=== PATIENT | female | born 1985 | race African-American/Black ===

== ENCOUNTER 2017-02-01 00:50 | Emergency (ER) | payer MEDICAID, OTHER ==
[~2017-02-01] VITALS: Ht 167.6 cm; Wt 109.0 kg
[~2017-02-01 00:50] MED LIST: ALBUTEROL; PHENOBARBITAL
[2017-02-01 03:44] LABS: CLARITY URINE CLEAR (CLEAR); COLOR URINE YELLOW (YELLOW); GLUCOSE URINE NEGATIVE (NEGATIVE); KETONES URINE NEGATIVE (NEGATIVE); LEUKOCYTE ESTERASE URINE 2+ (NEGATIVE); NITRITE URINE NEGATIVE (NEGATIVE); OCCULT BLOOD URINE TRACE (NEGATIVE); PROTEIN URINE NEGATIVE (NEGATIVE); SPECIFIC GRAVITY URINE 1.015 (1.005-1.030); UROBILINOGEN URINE 0.2 E.U./dL (0.2-1.0)
[2017-02-01] MEDS ORDERED: IBUPROFEN 800MG TABLET PO ONE (05:30)
[2017-02-01 05:40] VITALS: BP 126/80
== END 2017-02-01 05:42 | disposition home or self-care (01) ==
LOC: ER 00:50
DX: N39.0 Urinary tract infection, site not specified (principal); G40.909 Epilepsy, unspecified, not intractable, without status epilepticus
CPT/HCPCS: 81001; 81025; 99283

== ENCOUNTER 2021-04-20 15:10 | Emergency (ER) | payer OTHER ==
[~2021-04-20] VITALS: Ht 165.1 cm; Wt 100.0 kg
[2021-04-20] MEDS ORDERED: LORAZEPAM 0.5MG TABLET PO ONE (16:00)
[2021-04-20 16:13] LABS: BASOPHILS % 0.6 % (0.0-2.0); EOSINOPHILS % 0.7 % (0.0-5.0); HEMATOCRIT. 38.8 % (36.0-48.0); LYMPHOCYTES % 19.7 % (20.0-50.0); MEAN CORPUSCULAR HEMOGLOBIN 30.2 pg (28.0-32.0); MEAN CORPUSCULAR VOLUME 89.8 fL (81.0-99.0); MEAN PLATELET VOLUME 9.5 fl (7.4-10.4); MONOCYTES % 3.6 % (2.0-8.0); NEUTROPHILS % 75.4 % (40.0-76.0); PLATELET 333 x1000/uL (130-400); RED BLOOD CELL COUNT 4.31 mill/uL (4.2-5.4); RED CELL DISTRIBUTION WIDTH 13.7 % (11.6-14.6)
[2021-04-20 16:17] LABS: CHLORIDE 110 mEq/L (98-107)
[2021-04-20 17:41] VITALS: BP 130/84
[2021-04-20] MEDS ORDERED: LORA-249 MT ×3 (18:08→19:03)
[2021-04-20] MEDS ORDERED: LORA-249 PO ×2 (19:10→21:53)
== END 2021-04-20 18:26 | disposition home or self-care (01) ==
LOC: ER 15:10
DX: R07.89 Other chest pain (principal); F41.9 Anxiety disorder, unspecified; R00.0 Tachycardia, unspecified; R03.0 Elevated blood-pressure reading, without diagnosis of hypertension; E87.6 Hypokalemia; R74.01 Elevation of levels of liver transaminase levels; G40.909 Epilepsy, unspecified, not intractable, without status epilepticus; J45.909 Unspecified asthma, uncomplicated; Z79.51 Long term (current) use of inhaled steroids; Z79.899 Other long term (current) drug therapy
CPT/HCPCS: 36415; 71045; 80053; 83880; 84484; 85025; 85379; 93005; 99285

== ENCOUNTER 2021-10-29 01:44 | Observation (INO) | payer OTHER ==
[~2021-10-29] VITALS: Ht 167.6 cm; Wt 127.0 kg
[~2021-10-29 01:44] MED LIST changes: +LORA-249 PO
[2021-10-29] MEDS ORDERED: LACTATED RINGERS 1,000 ML IV ONE (02:30)
[2021-10-29] MEDS ORDERED: SODIUM CHLORIDE 0.9% 1,000 ML IV SCH (02:30)
[2021-10-29] MEDS ORDERED: ONDANSETRON HCL 4MG/2ML INJ IV PRN (02:30)
[2021-10-29 03:28] LABS: CLARITY URINE CLOUDY (CLEAR); COLOR URINE DARK YELLOW (YELLOW); KETONES URINE 2+ (NEGATIVE); LEUKOCYTE ESTERASE URINE 1+ (NEGATIVE); NITRITE URINE NEGATIVE (NEGATIVE); OCCULT BLOOD URINE NEGATIVE (NEGATIVE); PROTEIN URINE 1+ (NEGATIVE); SPECIFIC GRAVITY URINE 1.028 (1.005-1.030)
[2021-10-29 03:30] LABS: BASOPHILS % 0.2 % (0.0-2.0); EOSINOPHILS % 0.5 % (0.0-5.0); HEMATOCRIT. 35.5 % (36.0-48.0); HEMOGLOBIN. 11.7 g/dL (12.0-16.0); LYMPHOCYTES % 14.8 % (20.0-50.0); MEAN CORPUSCULAR HEMOGLOBIN 29.4 pg (28.0-32.0); MEAN CORPUSCULAR VOLUME 89.2 fL (81.0-99.0); MEAN PLATELET VOLUME 9.9 fl (7.4-10.4); NEUTROPHILS % 79.5 % (40.0-76.0); PLATELET 240 x1000/uL (130-400); RED BLOOD CELL COUNT 3.98 mill/uL (4.2-5.4); RED CELL DISTRIBUTION WIDTH 15.1 % (11.6-14.6)
[2021-10-29] MEDS ORDERED: PREN-55 PO (03:37)
[2021-10-29 03:44] LABS: CHLORIDE 109 mEq/L (98-107)
[2021-10-29] MEDS ORDERED: TERBUTALINE SULFATE 1MG/ML VIAL SUBCUT PRN (05:15)
== END 2021-10-29 07:30 | disposition home or self-care (01) ==
LOC: 8 EST LDRP 01:44
PROVIDERS: ADMIT Obstetrics & Gynecology; ATTEND Obstetrics & Gynecology
DX: O21.2 Late vomiting of pregnancy (principal); O26.893 Other specified pregnancy related conditions, third trimester; R10.9 Unspecified abdominal pain; O09.523 Supervision of elderly multigravida, third trimester; Z3A.32 32 weeks gestation of pregnancy
CPT/HCPCS: 36415; 59025; 76805; 76817; 76818; 80053; 81003; 82731; 85025; 96361; 96374; G0378; J2405; J3105; 96360; 99281

== ENCOUNTER 2021-10-29 07:49 | Emergency (ER) | payer OTHER ==
[~2021-10-29] VITALS: Ht 170.2 cm; Wt 137.0 kg
[~2021-10-29 07:49] MED LIST changes: +PREN-55 PO
[2021-10-29] MEDS ORDERED: METOCLOPRAMIDE HCL 10MG/2ML VIAL IV ONE (09:30)
[2021-10-29] MEDS ORDERED: SODIUM CHLORIDE 0.9% 1,000 ML IV ONE (09:30)
[2021-10-29 10:30] LABS: BASOPHILS % 0.2 % (0.0-2.0); EOSINOPHILS % 0.1 % (0.0-5.0); HEMATOCRIT. 32.4 % (36.0-48.0); HEMOGLOBIN. 10.9 g/dL (12.0-16.0); MEAN CORPUSCULAR HEMOGLOBIN 29.8 pg (28.0-32.0); MEAN CORPUSCULAR VOLUME 88.4 fL (81.0-99.0); MEAN PLATELET VOLUME 8.9 fl (7.4-10.4); MONOCYTES % 2.8 % (2.0-8.0); NEUTROPHILS % 83.9 % (40.0-76.0); PLATELET 213 x1000/uL (130-400); RED BLOOD CELL COUNT 3.66 mill/uL (4.2-5.4); RED CELL DISTRIBUTION WIDTH 14.8 % (11.6-14.6)
[2021-10-29 10:43] LABS: CHLORIDE 111 mEq/L (98-107)
[2021-10-29 10:54] VITALS: BP 122/58
== END 2021-10-29 10:57 | disposition left against medical advice (07) ==
LOC: ER 07:49
DX: O26.893 Other specified pregnancy related conditions, third trimester (principal); R10.31 Right lower quadrant pain; Z98.890 Other specified postprocedural states; Z86.59 Personal history of other mental and behavioral disorders; Z3A.32 32 weeks gestation of pregnancy
CPT/HCPCS: 36415; 80053; 85025; 93005; 99284; J7030

== ENCOUNTER 2021-12-26 15:09 | Inpatient (IN) | payer MEDICAID, OTHER ==
[~2021-12-26] VITALS: Ht 167.6 cm; Wt 126.6 kg
[2021-12-26] MEDS ORDERED: KETOROLAC 15MG/ML VIAL IV ONE (15:30)
[2021-12-26] MEDS ORDERED: ONDANSETRON HCL 4MG/2ML INJ IV ONE (15:30)
[2021-12-26] MEDS ORDERED: SODIUM CHLORIDE 0.9% 1,000 ML IV ONE (15:30)
[2021-12-26 16:01] LABS: CHLORIDE 109 mEq/L (98-107)
[2021-12-26 16:03] LABS: HEMATOCRIT. 42.2 % (36.0-48.0); MEAN CORPUSCULAR HEMOGLOBIN 29.2 pg (28.0-32.0); MEAN CORPUSCULAR VOLUME 88.1 fL (81.0-99.0); MEAN PLATELET VOLUME 8.9 fl (7.4-10.4); PLATELET 322 x1000/uL (130-400); RED BLOOD CELL COUNT 4.78 mill/uL (4.2-5.4); RED CELL DISTRIBUTION WIDTH 15.4 % (11.6-14.6)
[2021-12-26 16:30] LABS: PLATELET ESTIMATE NORMAL
[2021-12-26] MEDS ORDERED: MORPHINE SULFATE 4 MG/ML CPJ (NOT FOR IM USE) IV ONE (18:45)
[2021-12-26] MEDS ORDERED: SODIUM CHLORIDE 0.9% 1000ML BAG (SEPSIS BOLUS) IV ONE (18:45)
[2021-12-26] MEDS ORDERED: PIPERACILLIN/TAZ 3.375G PREMIX 50 ML IV ONE (18:45)
[2021-12-26] MEDS ORDERED: MORPHINE SULFATE 4 MG/ML CPJ (NOT FOR IM USE) IV NR ×2 (18:46→23:19)
[2021-12-26] MEDS ORDERED: POTASSIUM CHLORIDE 20MEQ/PACKET PO ONE (19:15)
[2021-12-27] VITALS (8 sets, daily range): BP systolic 111–146; BP diastolic 46–77
[2021-12-27] MEDS ORDERED: ACETAMINOPHEN 650MG SUPP PR PRN (01:15)
[2021-12-27] MEDS ORDERED: ONDANSETRON HCL 4MG/2ML INJ IV PRN (01:15)
[2021-12-27] MEDS: DEXT 5%/0.45% NACL KCL 20MEQ/L 1,000 ML IV SCH (02:58)
[2021-12-27] MEDS: MORPHINE SULFATE 2 MG/ML CPJ (NOT FOR IM USE) IV PRN ×3 (04:18→19:48)
[2021-12-27] MEDS: PIPERACILLIN/TAZOBACTAM 3.375 G in DEXTROSE 5% WATER 50 ML IV SCH ×3 (05:35→21:18)
[2021-12-27] MEDS: PANTOPRAZOLE SODIUM 40 MG/VIAL IV SCH (10:00)
[2021-12-27 11:12] LABS: HEMATOCRIT. 37.4 % (36.0-48.0); HEMOGLOBIN. 12.3 g/dL (12.0-16.0); MEAN CORPUSCULAR HEMOGLOBIN 28.7 pg (28.0-32.0); MEAN CORPUSCULAR VOLUME 87.5 fL (81.0-99.0); MEAN PLATELET VOLUME 9.1 fl (7.4-10.4); PLATELET 310 x1000/uL (130-400); RED BLOOD CELL COUNT 4.27 mill/uL (4.2-5.4); RED CELL DISTRIBUTION WIDTH 15.6 % (11.6-14.6)
[2021-12-27 11:22] LABS: CHLORIDE 111 mEq/L (98-107)
[2021-12-27] MEDS: METOPROLOL TARTRATE 25MG TABLET PO SCH ×2 (11:53→21:18)
[2021-12-27] MEDS ORDERED: LORAZEPAM 2MG/ML CPJ IV PRN (12:00)
[2021-12-27] MEDS ORDERED: POTASSIUM CHLORIDE 20MEQ TABLET SR PO NR (13:15)
[2021-12-27 14:41] LABS: PLATELET ESTIMATE NORMAL
[2021-12-27 16:26] LABS: CREATINE KINASE 39 IU/L (26-192); HCG SCREEN NEGATIVE
[2021-12-27 16:54] LABS: HEPATITIS B SURFACE ANTIGEN NEGATIVE
[2021-12-27 20:53] LABS: *AMPHETAMINES SCREEN URINE NEGATIVE (NEGATIVE); *BARBITURATES SCREEN URINE NEGATIVE (NEGATIVE); *BENZODIAZEPINES SCREEN URINE NEGATIVE (NEGATIVE); *COCAINE SCREEN URINE NEGATIVE (NEGATIVE)
[2021-12-27 20:54] LABS: CANNABINOID URINE SCREEN NEGATIVE (NEGATIVE); METHADONE URINE SCREEN NEGATIVE (NEGATIVE); PHENCYCLIDINE URINE SCREEN NEGATIVE (NEGATIVE)
[2021-12-27 21:10] LABS: OPIATES URINE SCREEN PRESUMTIVE POSITIVE (NEGATIVE)
[2021-12-28] VITALS: BP 110/58
[2021-12-28] MEDS: DEXT 5%/0.45% NACL KCL 20MEQ/L 1,000 ML IV SCH ×2 (01:57→22:13)
[2021-12-28 04:00] VITALS: BP 109/42
[2021-12-28] MEDS: PIPERACILLIN/TAZOBACTAM 3.375 G in DEXTROSE 5% WATER 50 ML IV SCH ×3 (05:39→22:12)
[2021-12-28 08:00] VITALS: BP 115/66
[2021-12-28 10:07] LABS: HEMATOCRIT. 35.1 % (36.0-48.0); HEMOGLOBIN. 11.5 g/dL (12.0-16.0); MEAN CORPUSCULAR HEMOGLOBIN 28.7 pg (28.0-32.0); MEAN CORPUSCULAR VOLUME 87.7 fL (81.0-99.0); MEAN PLATELET VOLUME 8.3 fl (7.4-10.4); PLATELET 303 x1000/uL (130-400); RED CELL DISTRIBUTION WIDTH 15.8 % (11.6-14.6)
[2021-12-28 10:13] LABS: CHLORIDE 113 mEq/L (98-107)
[2021-12-28 10:17] LABS: INR 1.2; PROTHROMBIN TIME 12.9 sec (9.6-11.0)
[2021-12-28] MEDS: PANTOPRAZOLE SODIUM 40 MG/VIAL IV SCH (10:20)
[2021-12-28] MEDS: METOPROLOL TARTRATE 25MG TABLET PO SCH ×2 (10:21→22:21)
[2021-12-28 12:00] VITALS: BP 121/58
[2021-12-28 12:12] LABS: PLATELET ESTIMATE NORMAL
[2021-12-28] MEDS ORDERED: IOHEXOL-300 100 ML BOTTLE ONE (12:55)
[2021-12-28 16:00] VITALS: BP 132/67
[2021-12-28] MEDS: TRAMADOL 50MG TABLET PO PRN (17:36)
[2021-12-28 20:00] VITALS: BP 113/50
[2021-12-29] VITALS: BP 104/55
[2021-12-29 04:00] VITALS: BP 125/74
[2021-12-29] MEDS: PIPERACILLIN/TAZOBACTAM 3.375 G in DEXTROSE 5% WATER 50 ML IV SCH ×2 (05:18→14:00)
[2021-12-29 08:00] VITALS: BP 116/55
[2021-12-29 08:23] LABS: BASOPHILS % 0.2 % (0.0-2.0); EOSINOPHILS % 4.3 % (0.0-5.0); HEMOGLOBIN. 10.7 g/dL (12.0-16.0); LYMPHOCYTES % 9.2 % (20.0-50.0); MEAN CORPUSCULAR HEMOGLOBIN 28.5 pg (28.0-32.0); MEAN CORPUSCULAR VOLUME 87.8 fL (81.0-99.0); NEUTROPHILS % 84.3 % (40.0-76.0); PLATELET 283 x1000/uL (130-400); RED BLOOD CELL COUNT 3.76 mill/uL (4.2-5.4); RED CELL DISTRIBUTION WIDTH 15.7 % (11.6-14.6)
[2021-12-29 08:37] LABS: CHLORIDE 109 mEq/L (98-107)
[2021-12-29] MEDS: METOPROLOL TARTRATE 25MG TABLET PO SCH (09:24)
[2021-12-29] MEDS: PANTOPRAZOLE SODIUM 40 MG/VIAL IV SCH (09:24)
[2021-12-29] MEDS: TRAMADOL 50MG TABLET PO PRN (11:52)
[2021-12-29] MEDS ORDERED: LEVO500T89 MT (11:52)
[2021-12-29 12:00] VITALS: BP 125/69
[2021-12-29 15:34] LABS: CLARITY URINE CLEAR (CLEAR); COLOR URINE YELLOW (YELLOW); KETONES URINE NEGATIVE (NEGATIVE); LEUKOCYTE ESTERASE URINE 1+ (NEGATIVE); NITRITE URINE NEGATIVE (NEGATIVE); OCCULT BLOOD URINE 2+ (NEGATIVE); PROTEIN URINE NEGATIVE (NEGATIVE); SPECIFIC GRAVITY URINE 1.011 (1.005-1.030)
[2021-12-29 16:00] VITALS: BP 135/76
[2021-12-29 16:28] VITALS: BP 135/76
== END 2021-12-29 18:10 | disposition home or self-care (01) | DRG 720 ==
LOC: ER 15:09 → 8WST 20:28 → ENRESERV 23:36
PROVIDERS: ADMIT Internal Medicine; ATTEND Internal Medicine
DX: A41.9 Sepsis, unspecified organism (principal); K85.10 Biliary acute pancreatitis without necrosis or infection; E87.8 Other disorders of electrolyte and fluid balance, not elsewhere classified; K80.60 Calculus of gallbladder and bile duct with cholecystitis, unspecified, without obstruction; E83.51 Hypocalcemia; K76.0 Fatty (change of) liver, not elsewhere classified; D72.825 Bandemia; G40.909 Epilepsy, unspecified, not intractable, without status epilepticus; J45.909 Unspecified asthma, uncomplicated; E66.01 Morbid (severe) obesity due to excess calories; E87.6 Hypokalemia; R74.01 Elevation of levels of liver transaminase levels; Z98.891 History of uterine scar from previous surgery; Z79.899 Other long term (current) drug therapy; Z68.42 Body mass index [BMI] 45.0-49.9, adult; Z71.3 Dietary counseling and surveillance
CPT/HCPCS: 36415; 74177; 76700; 80048; 80053; 80076; 80305; 81003; 82550; 83605; 84484; 84703; 85025; 86705; 86709; 86803; 87340; 93005; 99291; C9113; J1885; J2270; J2405; J2543; J7030; J7060; Q9967

== ENCOUNTER 2022-03-29 05:33 | Emergency (ER) | payer OTHER ==
[~2022-03-29] VITALS: Ht 167.6 cm; Wt 118.0 kg
[~2022-03-29 05:33] MED LIST changes: -ALBUTEROL; +LEVO500T90 MT; -LORA-249 PO; -PHENOBARBITAL; -PREN-55 PO
[2022-03-29] MEDS ORDERED: ONDANSETRON HCL 4MG/2ML INJ IV ONE (08:45)
[2022-03-29] MEDS ORDERED: KETOROLAC 30MG/ML VIAL IV ONE (08:45)
[2022-03-29 08:52] LABS: BASOPHILS % 0.3 % (0.0-2.0); EOSINOPHILS % 0.5 % (0.0-5.0); HEMATOCRIT. 39.9 % (36.0-48.0); HEMOGLOBIN. 13.2 g/dL (12.0-16.0); LYMPHOCYTES % 11.2 % (20.0-50.0); MEAN CORPUSCULAR HEMOGLOBIN 29.5 pg (28.0-32.0); MEAN CORPUSCULAR VOLUME 89.4 fL (81.0-99.0); MEAN PLATELET VOLUME 9.7 fl (7.4-10.4); MONOCYTES % 3.1 % (2.0-8.0); NEUTROPHILS % 84.9 % (40.0-76.0); PLATELET 283 x1000/uL (130-400); RED BLOOD CELL COUNT 4.46 mill/uL (4.2-5.4); RED CELL DISTRIBUTION WIDTH 15.1 % (11.6-14.6)
[2022-03-29 09:36] LABS: CHLORIDE 105 mEq/L (98-107)
[2022-03-29] MEDS ORDERED: MORPHINE SULFATE 4 MG/ML CPJ (NOT FOR IM USE) IV ONE (11:45)
[2022-03-29 12:00] VITALS: BP 125/66
[2022-03-29] MEDS ORDERED: TRAM50TA MT (12:41)
[2022-03-29] MEDS ORDERED: ONDA4TAB11 PO (12:41)
== END 2022-03-29 13:19 | disposition home or self-care (01) ==
LOC: ER 05:33
DX: K80.01 Calculus of gallbladder with acute cholecystitis with obstruction (principal)
CPT/HCPCS: 36415; 76705; 80053; 85025; 93005; 96374; 96375; 99285; J1885; J2270; J2405